=== PATIENT | male | born 1965 | race Caucasian/White ===

== ENCOUNTER 2021-10-07 20:34 | Emergency (ER) | payer OTHER ==
[2021-10-07] MEDS ORDERED: FLEXERIL5 MG PO (23:57)
== END 2021-10-08 00:02 | disposition home or self-care (01) ==
LOC: FER 20:34
DX: S13.4XXA Sprain of ligaments of cervical spine, initial encounter (principal); S20.312A Abrasion of left front wall of thorax, initial encounter; V49.40XA Driver injured in collision with unspecified motor vehicles in traffic accident, initial encounter; Z28.311 Partially vaccinated for COVID-19
CPT/HCPCS: 70450; 72125